=== PATIENT | male | born 1970 | race Asian ===

== ENCOUNTER 2017-10-12 21:08 | Inpatient (IN) | payer MEDICAID ==
[~2017-10-12] VITALS: Ht 157.5 cm; Wt 84.0 kg
[2017-10-12] MEDS ORDERED: NITROGLYCERIN0.4 MG SL (22:39)
[2017-10-12 22:43] LABS: BASOPHIL % 0.4 % (0-2); RED CELL DISTRIBUTION WIDTH 13.7 % (11.5-14.5)
[2017-10-12 22:46] LABS: PLATELET COUNT 805 x10^3mcL (130-400)
[2017-10-12 22:54] LABS: CARBON DIOXIDE 29.3 mmol/L (21-32); CREATININE SERUM 1.4 mg/dL (0.7-1.3); POTASSIUM SERUM 3.6 mmol/L (3.5-5.1)
[2017-10-12 22:58] LABS: BILIRUBIN TOTAL 0.5 mg/dL (0.20-1.00)
[2017-10-12 23:00] LABS: ALBUMIN 3.2 g/dL (3.4-5.0); TOTAL PROTEIN, SERUM 8.4 g/dL (6.4-8.2)
[2017-10-13] VITALS (15 sets, daily range): BP systolic 102–138; BP diastolic 69–95
[2017-10-13 02:20] LABS: CHOLESTEROL/HDL RATIO 4.3; MAGNESIUM 2.1 mg/dL (1.8-2.4); PHOSPHOROUS 3.3 mg/dL (2.5-4.9)
[2017-10-13 02:25] LABS: T3 TOTAL 0.97 ng/mL
[2017-10-13 02:32] LABS: FREE T4 1.29 ng/dL (0.76-1.46); FREE THYROXINE INDEX 3.8 ug/dL (1.4-4.5); T4(THYROXINE) 10.2 ug/dL (4.7-13.3)
[2017-10-13 07:24] LABS: CALCIUM 8.2 mg/dL (8.5-10.1); CARBON DIOXIDE 25.7 mmol/L (21-32); CHLORIDE SERUM 105 mmol/L (98-107); CREATININE SERUM 1.1 mg/dL (0.7-1.3); GFR1 > 60 mL/min; GLUCOSE SERUM 89 mg/dL (74-106); PHOSPHOROUS 4.1 mg/dL (2.5-4.9); POTASSIUM SERUM 3.2 mmol/L (3.5-5.1); SODIUM SERUM 140 mmol/L (136-145)
[2017-10-13 07:25] LABS: BASOPHIL % 0.4 % (0-2); RED CELL DISTRIBUTION WIDTH 13.9 % (11.5-14.5)
[2017-10-13 10:10] LABS: PLATELET COUNT 713 x10^3mcL (130-400)
[2017-10-13 15:42] LABS: microscopic required? NO
[2017-10-13 15:52] LABS: UA SPECIFIC GRAVITY 1.015 (1.005-1.035); urine erythrocyte NEGATIVE (NEGATIVE)
[2017-10-13 16:00] LABS: AMPHETAMINE QUAL UR NONE DETECTED (NEG <=1000)
[2017-10-14 05:23] LABS: BASOPHIL % 0.2 % (0-2); RED CELL DISTRIBUTION WIDTH 13.8 % (11.5-14.5)
[2017-10-14 05:30] LABS: CALCIUM 8.4 mg/dL (8.5-10.1); CARBON DIOXIDE 26.3 mmol/L (21-32); CHLORIDE SERUM 104 mmol/L (98-107); CREATININE SERUM 1.1 mg/dL (0.7-1.3); GFR1 > 60 mL/min; GLUCOSE SERUM 117 mg/dL (74-106); POTASSIUM SERUM 3.9 mmol/L (3.5-5.1); SODIUM SERUM 137 mmol/L (136-145)
[2017-10-14 05:35] LABS: PLATELET COUNT 757 x10^3mcL (130-400)
[2017-10-14 05:58] VITALS: BP 135/83
[2017-10-14 10:06] VITALS: BP 122/87
[2017-10-14] MEDS ORDERED: FLO4 PO (11:35)
[2017-10-14 12:33] VITALS: BP 95/68
[2017-10-14 15:03] VITALS: BP 110/69
[2017-10-14 16:45] VITALS: BP 122/86
[2017-10-14] MEDS ORDERED: METOPROLOL TART25 M1 PO (17:43)
[2017-10-14] MEDS ORDERED: LIPI10 PO (17:43)
[2017-10-14] MEDS ORDERED: ZES5 PO (17:43)
[2017-10-14] MEDS ORDERED: GLU500 PO (17:44)
[2017-10-14] MEDS ORDERED: HUMULIN R100 U/1 M1 SC (17:44)
[2017-10-14] MEDS ORDERED: BAY PO (17:48)
[2017-10-14 21:32] VITALS: BP 105/77
[2017-10-15 06:30] LABS: BASOPHIL % 0.9 % (0-2)
[2017-10-15 06:34] VITALS: BP 100/70
[2017-10-15 06:51] LABS: CALCIUM 8.3 mg/dL (8.5-10.1); CARBON DIOXIDE 25.7 mmol/L (21-32); CHLORIDE SERUM 102 mmol/L (98-107); CREATININE SERUM 1.2 mg/dL (0.7-1.3); GFR1 > 60 mL/min; GLUCOSE SERUM 114 mg/dL (74-106); SODIUM SERUM 137 mmol/L (136-145)
[2017-10-15 06:55] LABS: PLATELET COUNT 719 x10^3mcL (130-400)
[2017-10-15 08:06] VITALS: BP 101/73
[2017-10-15 08:44] VITALS: Ht 157.5 cm; Wt 84.0 kg
[2017-10-15 11:19] VITALS: BP 101/73
[2017-10-15 13:54] VITALS: BP 111/82
== END 2017-10-15 16:41 | disposition short-term general hospital (02) | DRG 191 ==
LOC: ED 21:08 → DU 23:07
PROVIDERS: Emergency Medicine; Family Medicine; Internal Medicine Interventional Cardiology
PROC: B2051ZZ Plain Radiography of Left Heart using Low Osmolar Contrast (ICD-10-PCS; 2017-10-13)
PROC: B2011ZZ Plain Radiography of Multiple Coronary Arteries using Low Osmolar Contrast (ICD-10-PCS; 2017-10-13)
PROC: B40F1ZZ Plain Radiography of Right Lower Extremity Arteries using Low Osmolar Contrast (ICD-10-PCS; 2017-10-13)
PROC: 4A023N7 Measurement of Cardiac Sampling and Pressure, Left Heart, Percutaneous Approach (ICD-10-PCS; principal; 2017-10-13 13:30)
DX: I25.10 Atherosclerotic heart disease of native coronary artery without angina pectoris (principal); N17.0 Acute kidney failure with tubular necrosis; M94.0 Chondrocostal junction syndrome [Tietze]; I10 Essential (primary) hypertension; E78.5 Hyperlipidemia, unspecified; E78.00 Pure hypercholesterolemia, unspecified; E44.0 Moderate protein-calorie malnutrition; K21.9 Gastro-esophageal reflux disease without esophagitis; D47.3 Essential (hemorrhagic) thrombocythemia; M54.2 Cervicalgia; D64.9 Anemia, unspecified; E66.9 Obesity, unspecified; I70.209 Unspecified atherosclerosis of native arteries of extremities, unspecified extremity; I42.9 Cardiomyopathy, unspecified; N13.30 Unspecified hydronephrosis; K80.20 Calculus of gallbladder without cholecystitis without obstruction; E11.65 Type 2 diabetes mellitus with hyperglycemia
CPT/HCPCS: CLHCL; 82962; 83880; 84439; C1760; C1769; C1887; C1894; J1644; J2001; J2250; J2270; J3010; J7030; J7040; Q0092; Q9967